=== PATIENT | female | born 1950 | race Caucasian/White ===

== ENCOUNTER → 2016-12-29 | Day surgery (SDC) | payer BC ==
[~2016-12-29] VITALS: Ht 154.9 cm; Wt 73.7 kg
[~2016-12-29] MED LIST: ADVIL200 MG PO; DIOVAN HCT 80-1 EACH PO; MAXALT MLT10 MG PO; NORCO 5-325 TA1 EACH PO; TRAMADOL HCL50 MG PO
--- NOTE | ~2016-12-29 | OR ---
PATIENT'S NAME: MARTELL [facility] AGE: 66 Y [address] ROOM: [place] [id number] [place] [facility] [place]: 12/29/2016 OR/Procedure Report DISCHARGE DATE: FAMILY PHYSICIAN: Katherine Bella MD ATTENDING PHYSICIAN: Larry Simeon SURGEON: Larry Simeon MD TRANSFER COORDINATOR: Yelitza Ambrosio PA-C. DATE OF PROCEDURE: 12/29/2016 REFERRING PHYSICIAN: Dr. Bella in [place]. PREOPERATIVE DIAGNOSES: 1. Chronic cholecystitis and cholelithiasis. 2. History of thrombocytopenia. POSTOPERATIVE DIAGNOSES: 1. Chronic cholecystitis and cholelithiasis. 2. History of thrombocytopenia. PROCEDURE: Laparoscopic cholecystectomy. ANESTHESIA: General with 20 mL 0.5% Marcaine. SPECIMENS: Gallbladder with stones. INDICATIONS: The patient is a pleasant 66-year-old young lady, worked up by Dr. Bella as well as Dr. Ndiaye in [facility] for evaluation of episodic abdominal pain in the right upper quadrant, occasionally into her back, it is intermittent in nature. Ultrasound has shown cholelithiasis. I evaluated and felt it was consistent with her symptoms of biliary colic. She also has a history of idiopathic thrombocytopenia. Her platelet count preoperatively today was 88,000. DESCRIPTION OF PROCEDURE: After informed consent, the patient was taken to the operating room and after general endotracheal anesthesia, the patient's abdomen was prepped and draped into a sterile field. A time-out was performed. We confirmed the patient, planned procedure, and administration of preop antibiotics. Local anesthetic infiltrated prior to each incision. The first one made below the umbilicus, carried down to identify the anterior fascia through which a Veress needle inserted and pneumoperitoneum created. Trocar and laparoscope inserted. Safe entry was noted. Under direct vision, the remaining trocars were placed. The gallbladder was pale and floppy. It was retracted cephalad and laterally. We opened up the triangle and increased our critical view of safety by scoring the adipose tissue of the region and taken down and scoring the gallbladder reflection on the left lateral aspect. PATIENT'S NAME: MARTELL [facility] AGE: 66 Y [address] ROOM: [place] [address] [place] [facility] [place]: 12/29/2016 OR/Procedure Report DISCHARGE DATE: FAMILY PHYSICIAN: Katherine Bella MD ATTENDING PHYSICIAN: Larry Simeon We then dissected it within the triangle and isolated out a small caliber cystic duct near the gallbladder union. We placed 4 clips and divided with one clip remaining on the gallbladder side. Next, we isolated out the cystic artery, clipped and divided. We removed the gallbladder from the hepatic fossa and from the liver bed with electrocautery. We placed it into an EndoCatch bag and brought out through the fascial defect at the umbilicus. We irrigated the right upper quadrant and it was found to be hemostatic. Under direct vision, we used 0 Vicryl Endo Stitch to close the subfascial 11 mm fascia defect. We then removed all trocars, released pneumoperitoneum, closed the fascia defect at the umbilicus with 0 Vicryl, and the skin closed with subcuticular 4-0 Vicryl. Steri-Strips and sterile dressings applied. The patient tolerated the procedure well and transferred to recovery room in stable condition. LARRY SIMEON MD WTS/modl /[id number] d: 12/29/16 1901 t: 01/19/17 0950, OPERATIVE SUMMARY
[2016-12-29 06:52] LABS: BASOPHIL % 0.6 %; EOSINOPHIL # 0.2 K/uL (0.0-0.5); EOSINOPHIL % 3.3 %; HEMATOCRIT 40.4 % (33.0-46.0); HEMOGLOBIN 14.1 g/dL (10.0-15.0); IMMATURE GRANULOCYTE % 0.2 %; LYMPHOCYTE # 1.9 K/uL (0.8-4.0); LYMPHOCYTE % 35.7 %; MCH 30.7 pg (27.0-34.0); MCHC 34.9 gm/dL (32.0-36.5); MONOCYTE # 0.6 K/uL (0.0-1.0); MONOCYTE % 10.5 %; MPV 12.3 fl (9.4-12.4); NEUTROPHIL # (ANC) 2.7 K/uL (1.8-7.8); NEUTROPHIL % 49.7 %; NRBC % 0 /100WBC (0-0.00); PLATELET COUNT 88 K/uL (150-450); RBC 4.59 M/uL (3.50-5.50); RDW-CV 13.1 % (11.9-14.6); WBC 5.4 K/uL (4.0-11.0)
[2016-12-29 07:08] LABS: ALBUMIN 3.8 gm/dL (3.5-5.0); ANION GAP 10.6 (10.0-19.0); CALCIUM 9.4 mg/dL (8.5-10.5); CREATININE 0.8 mg/dL (0.5-1.1); POTASSIUM 3.6 mMol/L (3.7-5.1); TOTAL BILIRUBIN 0.6 mg/dL (0.0-1.5); TOTAL PROTEIN 7.1 g/dL (6.0-8.4)
== END | disposition disaster alternative care site (69) ==
LOC: GPOC 12-24 15:00 → GSDC 05:56 → GPOC 15:00
PROVIDERS: Surgery
PROC: 0FT44ZZ Resection of Gallbladder, Percutaneous Endoscopic Approach (ICD-10-PCS; principal; 2016-12-29)
DX: K80.10 Calculus of gallbladder with chronic cholecystitis without obstruction (principal); I10 Essential (primary) hypertension; R51 Headache; Z88.6 Allergy status to analgesic agent; Z90.710 Acquired absence of both cervix and uterus; Z86.2 Personal history of diseases of the blood and blood-forming organs and certain disorders involving the immune mechanism; Z98.890 Other specified postprocedural states
CPT/HCPCS: J0694; J1170; J1885; J2001; J3010; J7120